=== PATIENT | female | born 1995 | race Caucasian/White ===

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

== ENCOUNTER 2017-04-13 01:25 | Emergency (ER) | payer BC ==
[~2017-04-13] VITALS: Ht 165.1 cm; Wt 108.0 kg
[~2017-04-13 01:25] MED LIST: ARIPIPRAZOLE5 MG PO
[2017-04-13 02:02] LABS: HEMATOCRIT 42.6 % (36.0-46.0); MCH 28.6 PG (29.0-34.0); MCHC 33.8 G/DL (30.0-36.0); MCV 84.7 FL (83-99); MEAN PLAT.VOLUME 9.8 uM^3 (9.5-12.4); PLATELET COUNT 272 K/uL (156-360); RBC DIS.WIDTH-CV 12.5 % (11.8-14.6); RBC DIS.WIDTH-SD 38.5 % (39-53); RED BLOOD COUNT 5.03 M/uL (3.80-5.20); WHITE BLOOD COUNT 9.8 K/uL (4.1-10.2)
[2017-04-13 02:12] LABS: CHLORIDE 103 mEq/L (99-109); POTASSIUM 3.8 mEq/L (3.7-5.4); SODIUM 138 mEq/L (136-147)
[2017-04-13 02:15] LABS: ANION GAP 10 MEQ/L (2-14)
[2017-04-13 02:18] LABS: GFR ESTIMATE (CALCULATED) > 59 mL/min/; UREA NITROGEN (BUN) 9 mg/dL (9-23)
[2017-04-13 02:19] LABS: GLUCOSE 98 mg/dL (70-99)
[2017-04-13 02:22] LABS: TROP-I INTERPRETATION NEGATIVE; TROPONIN-I < 0.01 ng/mL (0.0-0.30)
[2017-04-13 02:45] VITALS: BP 100/66
== END 2017-04-13 03:05 | disposition home or self-care (01) ==
LOC: EME 01:25
PROVIDERS: Emergency Medicine
DX: R55 Syncope and collapse (principal); R51 Headache; R06.02 Shortness of breath; F17.200 Nicotine dependence, unspecified, uncomplicated
CPT/HCPCS: 70450; 80048; 84484; 85027; 93005; 99281; 99284

== ENCOUNTER 2017-10-25 17:08 | Inpatient (IN) | payer BC ==
[~2017-10-25] VITALS: Ht 165.1 cm; Wt 108.7 kg
[2017-10-25 17:45] LABS: APPEARANCE CLOUDY ((CLEAR)); BILIRUBIN NEGATIVE; BLOOD NEGATIVE; COLOR YELLOW ((YELLOW)); GLUCOSE (STRIP) NEGATIVE; KETONES NEGATIVE; LEUKOCYTES TRACE; NITRITE NEGATIVE; PROTEIN (STRIP) 30; SPECIFIC GRAVITY 1.025 (1.000-1.030); UROBILINOGEN 0.2 MG/DL (0.2-1.0)
[2017-10-25 17:54] LABS: HEMATOCRIT 44.4 % (36.0-46.0); HEMOGLOBIN 15.1 G/DL (11.9-15.5); MCH 28.8 PG (29.0-34.0); MCV 84.7 FL (83-99); PLATELET COUNT 276 K/uL (156-360); RBC DIS.WIDTH-CV 12.5 % (11.8-14.6); RBC DIS.WIDTH-SD 38.2 % (39-53); RED BLOOD COUNT 5.24 M/uL (3.80-5.20)
[2017-10-25 17:59] LABS: AMPHETAMINE NEGATIVE (500 ng/mL); BARBITURATES NEGATIVE (200 ng/mL); BENZODIAZEPINES NEGATIVE (150 ng/mL); BUPRENORPHINE NEGATIVE (10 ng/mL); COCAINE NEGATIVE (150 ng/mL); METHADONE NEGATIVE (200 ng/mL); METHAMPHETAMINE NEGATIVE (500 ng/mL); OPIATES (MORPHINE) NEGATIVE (100 ng/mL); OXYCODONE NEGATIVE (100 ng/mL); PHENCYCLIDINE NEGATIVE (25 ng/mL); PROPOXYPHENE NEGATIVE (300 ng/mL); THC CANNABINOIDS PRESUMPTIVE POSITIVE (50 ng/mL); TRICYCLIC ANTIDEPRESSANTS NEGATIVE (300 ng/mL)
[2017-10-25 18:19] LABS: RED BLOOD CELLS NONE SEEN /HPF (0-5); WHITE BLOOD CELLS RARE /HPF (0-5)
[2017-10-25 18:20] LABS: BACTERIA 2+ /HPF; EPITHELIAL CELLS 3+ /HPF; MUCUS NONE SEEN /LPF
[2017-10-25 18:20] LABS: ALBUMIN 4.4 g/dL (3.2-4.8); CHLORIDE 104 mEq/L (99-109); POTASSIUM 3.7 mEq/L (3.7-5.4); SODIUM 140 mEq/L (136-147)
[2017-10-25 18:21] LABS: AMORPHOUS URATES CRYSTALS 2+
[2017-10-25 18:22] LABS: GLUCOSE 91 mg/dL (70-99); TOTAL PROTEIN 8.2 g/dL (6.4-8.3)
[2017-10-25 18:24] LABS: TOTAL BILIRUBIN 0.4 mg/dL (0.0-1.0)
[2017-10-25 18:25] LABS: SERUM ETHYL ALCOHOL < 10 mg/dL
[2017-10-25 18:26] LABS: ALKALINE PHOSPHATASE 86 IU/L (3-129); CREATININE 0.6 mg/dL (0.6-1.3); GFR ESTIMATE (CALCULATED) > 59 mL/min/
[2017-10-25 18:27] LABS: AST (GOT) 53 IU/L (2-34); UREA NITROGEN (BUN) 11 mg/dL (9-23)
[2017-10-25 18:29] LABS: ALT (GPT) 70 IU/L (3-49)
[2017-10-25 18:35] LABS: QUANTITATIVE HCG < 4.0 MIU/ML
[2017-10-25] MEDS ORDERED: ARTIFICIALS TEA30 ML BOTH EYES (19:15)
[2017-10-25] MEDS ORDERED: ADVIL200 MG PO (19:15)
[2017-10-25 20:27] VITALS: BP 110/67
[2017-10-26 07:46] VITALS: BP 110/57
[2017-10-26 15:26] VITALS: BP 109/59
[2017-10-27 07:28] VITALS: BP 99/57
[2017-10-27 15:39] VITALS: BP 104/61
[2017-10-28 07:27] VITALS: BP 87/49
[2017-10-28 15:53] VITALS: BP 112/61
[2017-10-29 08:01] VITALS: BP 101/56
[2017-10-29] MEDS ORDERED: ESCITALOPRAM OX10 MG PO (09:08)
[2017-10-29] MEDS ORDERED: BUSPAR10 MG PO (09:08)
[2017-10-29] MEDS ORDERED: ARIPIPRAZOLE10 MG PO (09:08)
== END 2017-10-29 09:49 | disposition home or self-care (01) | DRG 885 ==
LOC: EME 17:08 → 1WEST 18:45 → EDOF 18:45 → ENRESERV 19:32 → 1WEST 20:04
PROVIDERS: Emergency Medicine
DX: F33.2 Major depressive disorder, recurrent severe without psychotic features (principal); F12.20 Cannabis dependence, uncomplicated; R45.851 Suicidal ideations; F40.10 Social phobia, unspecified; F41.0 Panic disorder [episodic paroxysmal anxiety]; F60.9 Personality disorder, unspecified; Z56.0 Unemployment, unspecified; F17.210 Nicotine dependence, cigarettes, uncomplicated
CPT/HCPCS: 80053; 81003; 84702; 84999; 85027; 90837; 97150 GO; 97165 GO; 99281; 99285; G0480